=== PATIENT | female | born 1945 | race Caucasian/White ===

== ENCOUNTER 2018-12-22 09:51 | Observation (INO) | payer MEDICARE, BC ==
[2018-12-22 10:27] LABS: #Basophils 0.1 thou/uL (0.0-0.2); #Eosinphils 0.4 thou/uL (0.0-0.7); #Lymphocytes 1.5 thou/uL (1.20-3.40); #Monocytes 0.7 thou/uL (0.11-0.59); #Neutrophils 6.4 thou/uL (1.40-6.50); %Basophils 0.8 % (0.0-1.0); %Lymphocytes 16.7 % (21.0-51.0); %Monocytes 8.1 % (0.0-10.0); %Neutrophils 70.4 % (42.0-75.0); Hemoglobin 12.8 g/dL (12.0-16.0); Mean Corpuscular HGB CONC 34.5 g/dL (32.0-36.0); Mean Corpuscular Hemoglobin 33.8 pg (27.0-31.0); Mean Platelet Volume 10.2 fL (7.4-10.4); Platelet Count 197 thou/uL (130-400); RBC Distribution Width 12.6 % (11.5-14.5); Red Blood Cell (RBC) Count 3.81 mill/uL (4.20-5.40); White Blood Cell (WBC) Count 9.1 thou/uL (4.8-10.8)
--- NOTE | 2018-12-22 10:42 | RAD ---
EXAM: Portable chest PROVIDED CLINICAL HISTORY: Chest pain COMPARISON: 11/28/2010 FINDINGS: Cardiac and mediastinal silhouette is within normal limits. No focal consolidation, pleural fluid or pneumothorax evident. Evaluation of the left lung base is limited. Vascular calcification is seen. Em physematous changes are noted. IMPRESSION: No evidence for an acute cardiopulmonary process.
[2018-12-22 11:01] LABS: Albumin 3.9 g/dL (3.4-4.8)
[2018-12-22 11:02] LABS: Chloride 105 mmol/L (98-107); Potassium 4.4 mmol/L (3.5-5.1); Sodium 139 mmol/L (136-145)
[2018-12-22 11:03] LABS: Calcium 9.1 mg/dL (7.8-10.44)
[2018-12-22 11:04] LABS: Globulin 2.5 g/dL (2.4-3.5); Glucose 85 mg/dL (83-110); Protein, Total 6.4 g/dL (6.0-8.3)
[2018-12-22 11:05] LABS: Anion Gap 15 mmol/L (10-20); Bilirubin, Total 0.8 mg/dL (0.2-1.2); Carbon Dioxide 23 mmol/L (23-31)
[2018-12-22 11:06] LABS: Alkaline Phosphatase 72 U/L (40-150)
[2018-12-22 11:07] LABS: Calc. Creatinine Clearance 0 mL/min (70-130); Estimated GFR-MDRD 55
[2018-12-22 11:08] LABS: BUN (Urea Nitrogen) 18 mg/dL (9.8-20.1)
[2018-12-22 11:09] LABS: AST (SGOT) 13 U/L (5-34)
[2018-12-22 11:10] LABS: ALT (SGPT) 12 U/L (8-55); CK (CPK) 42 U/L (29-168); Lipase 10 U/L (8-78)
[2018-12-22] MEDS ORDERED: Aspirin Chewable 81 MG TAB ONE (12:37)
[2018-12-22 13:56] LABS: Troponin I Less than 0.010 ng/mL (< 0.028)
[2018-12-22] MEDS ORDERED: Ibuprofen 200 MG TAB PO ONE (15:53)
[2018-12-22] MEDS ORDERED: Acetaminophen 325 MG TAB PO PRN (15:54)
[2018-12-22 16:41] LABS: Troponin I 0.016 ng/mL (< 0.028)
[2018-12-22] MEDS ORDERED: Acetaminophen 325 MG TAB ONE (18:09)
--- NOTE | 2018-12-22 20:06 | SS ---
DATE OF ADMISSION: 12/22/2018 DATE OF DISCHARGE: 12/22/2018 PRIMARY CARE PHYSICIAN: Dr. Tito Hassan. CODE STATUS: Full code status. CONSULTING PHYSICIANS: None. However, Dr. Andersen, her clerical aide teacher, said going briefly to see her. BRIEF HISTORY AND HOSPITAL COURSE: Ms. Castanon is a very pleasant 73-year-old woman, presenting to the ER today after having persistent pain in the right shoulder for the last 4 days. According to her , this all began after she was helping him in the garage with lifting sheets of plywood and heavy equipment. She began to experience discomfort in her right shoulder as well as her right anterior chest and discomfort in the posterior right scapular region. The patient has noted limited mobility of her arm with inability to abduct or externally rotate. She has had difficulty sleeping due to the discomfort. She has also noted difficulty with taking a deep breath due to discomfort in the right scapular region. She has not tried taking anything in particular for the pain, but does regularly take Tylenol for arthritis. The patient denies having any associated diaphoresis. No sternal chest pain. No nausea or vomiting. Has not had any fevers, chills, or sweats. No cough or hemoptysis. She does, however, report feeling a bit panicked about the pain and had an episode of hyperventilating according to her . This brought on tingling sensation in her fingers and toes, which has since resolved. She does still continue to feel an aching in her right arm and occasional tingling in her fingers. The patient was seen in the ER and underwent laboratory studies including a troponin due to concern for ACS. Troponins have been negative x3. She underwent an ECG given her cardiac history, which showed no abnormal changes. She had a chest x- ray done demonstrating no evidence for an acute cardiopulmonary process. No focal consolidation, pleural fluid, or pneumothorax evident. She was treated with aspirin 324 mg and referred for a chest pain rule out. On examination, it is evident that the patient actually has a musculoskeletal discomfort given the recent strenuous activity and injury 4 days ago that has been persisting. Given the normal EKG and troponin, she is unlikely to be experiencing any ACS or underlying cardiac problem. She was briefly seen by Dr. Andersen, who was in agreement. She has been evaluated by Dr. Salazar, who was also in agreement and the patient is medically cleared for discharge home. PAST MEDICAL HISTORY: 1. Previous TIA. 2. Right orbital fractures. 3. Hypertension. 4. Coronary artery disease. 5. Peripheral vascular disease. 6. Gout. 7. Hypothyroidism. 8. History of colitis. 9. History of dyslipidemia. PAST SURGICAL HISTORY: 1. Cholecystectomy. 2. Surgery to her middle finger. 3. Endarterectomy in 2008 after 95% stenosis was found on the left internal carotid artery. SOCIAL HISTORY: The patient denies any alcohol use, tobacco use, or illicit drug use. She lives with her and is fully independent at baseline. FAMILY HISTORY: Her father had history of coronary artery bypass grafting at age 76. Her sister from COPD and lung cancer. There is a history of lung cancer on her mother's side. ALLERGIES: THE PATIENT REPORTS ALLERGY TO CODEINE AND HYDROCODONE. CURRENT MEDICATIONS: 1. Diovan. 2. CoQ10 of 200 mg p.o. daily. 3. Ranexa 1000 mg p.o. daily. 4. Livalo 2 mg p.o. every evening. 5. Omeprazole magnesium 40 mg p.o. twice daily. 6. Levothyroxine 112 mcg p.o. at bedtime. 7. Clopidogrel 75 mg p.o. daily. 8. Carvedilol 12.5 mg p.o. daily. 9. Allopurinol 300 mg p.o. daily. PHYSICAL EXAMINATION: GENERAL: The patient appears well developed, well nourished, in no acute distress. She does appear to be in mild discomfort whenever she tries to move due to discomfort, particularly in the right posterior shoulder. VITAL SIGNS: Temperature 97.8, pulse 50, respirations 18, blood pressure 115/61 , and O2 saturation 98% on room air. HEENT: Normocephalic and atraumatic. Pupils are equal, round, and reactive to light. Sclerae without icterus. Oropharynx is clear. NECK: Supple without lymphadenopathy. No tenderness to palpation or swelling. CARDIAC: Regular rate and rhythm. LUNGS: Clear to auscultation bilaterally. However, difficulty with deep inspiration due to subsequent pain on the right shoulder/scapular region. ABDOMEN: Soft, nontender, and nondistended. Normoactive bowel sounds present. EXTREMITIES: No lower limb edema. No calf pain or tenderness. Power 5/5 in both upper and lower extremities. There is reduced range of motion into the right shoulder with inability to abduct or externally rotate her shoulder discomfort during both movements against resistance. Normal sales representative trainee strength bilaterally with normal sensation in the bilateral upper extremities. Pulses equal and strong bilaterally as well. Normal sensation in lower extremities with pedal pulses present and equal bilaterally as well. NEUROLOGIC: Alert and oriented x3. No focal deficits. SKIN: Without rash or jaundice. LABORATORY DATA: White blood count 9.1, hemoglobin 12.8, hematocrit 37.3, platelets 197. D-dimer less than 0.27. Sodium 139, potassium 4.4, carbon dioxide 23, anion gap 15, BUN 18, creatinine 0.99, GFR 55. Glucose 85, calcium 9.1. LFTs unremarkable. CK 42 and troponin negative x3. BNP 223.2. Lipase 10. IMAGING DATA: As mentioned above in HPI. Chest x-ray is unremarkable. CONDITION: Stable at discharge. ACTIVITY: As tolerated. Right shoulder to be placed in a sling for comfort until further workup. May benefit from PT/OT. DIET: Heart healthy. DISCHARGE MEDICATIONS: The patient advised to resume her regular home medications. We have provided a prescription for Tylenol Extra Strength to take 1 to 2 tablets p.o. as needed every 6 hours for pain. Prescription also given for Flexeril 5 mg p.o. at bedtime. FOLLOWUP: The patient advised to follow up with her primary care physician within 1 week for further management of her shoulder pain and further workup such as MRI and PT/OT. The patient was briefly seen by Dr. Andersen in the ER, who agreed pain is unlikely to be cardiac in nature, and she will continue to follow with him as scheduled. DISPOSITION: The patient's case was discussed with Dr. Salazar, also evaluated the patient and is in agreement with plans for discharge home today on December 22, 2018. Job ID: [id number] [facility]
[2018-12-22] MEDS ORDERED: Famotidine 20 MG TAB PO SCH (21:00)
== END 2018-12-22 18:26 | disposition home or self-care (01) ==
LOC: ERS 09:51 → ERHOLD 12:26
PROVIDERS: ADMIT Internal Medicine; ATTEND Internal Medicine
DX: M25.511 Pain in right shoulder (principal); R07.89 Other chest pain; I10 Essential (primary) hypertension; I25.10 Atherosclerotic heart disease of native coronary artery without angina pectoris; I73.9 Peripheral vascular disease, unspecified; M10.9 Gout, unspecified; E03.9 Hypothyroidism, unspecified; E78.5 Hyperlipidemia, unspecified; Z86.73 Personal history of transient ischemic attack (TIA), and cerebral infarction without residual deficits; Z79.02 Long term (current) use of antithrombotics/antiplatelets; Z79.899 Other long term (current) drug therapy; Z88.5 Allergy status to narcotic agent; Z98.890 Other specified postprocedural states
CPT/HCPCS: 71045; 80053; 82550; 83690; 83880; 84484 ×2; 85025; 85379; 93005; 99285; G0378; G0463; 36415; 99213

== ENCOUNTER 2023-04-30 07:59 | Observation (INO) | payer MEDICARE ==
[2023-04-30 08:53] LABS: #Basophils 0.1 thou/uL (0.0-0.2); #Eosinphils 0.5 thou/uL (0.0-0.7); #Monocytes 0.9 thou/uL (0.11-0.59); #Neutrophils 7.2 thou/uL (1.40-6.50); %Basophils 0.9 % (0.0-1.0); %Eosinophils 5.1 % (0.0-10.0); %Lymphocytes 14.4 % (21.0-51.0); %Monocytes 9.1 % (0.0-10.0); %Neutrophils 69.9 % (42.0-75.0); Hematocrit 38.2 % (36.0-47.0); Hemoglobin 12.4 g/dL (12.0-16.0); Mean Corpuscular HGB CONC 32.5 g/dL (32.0-36.0); Mean Corpuscular Hemoglobin 32.5 pg (27.0-31.0); Mean Platelet Volume 11.8 fL (7.4-10.4); Platelet Count 224 10x3/uL (130-400); RBC Distribution Width 13.8 % (11.5-14.5); Red Blood Cell (RBC) Count 3.82 mill/uL (4.20-5.40); White Blood Cell (WBC) Count 10.2 10x3/uL (4.8-10.8)
[2023-04-30 09:17] LABS: ALT (SGPT) 9 U/L (8-55); AST (SGOT) 14 U/L (5-34); Alkaline Phosphatase 73 U/L (40-110); Anion Gap 17 mmol/L (10-20); BUN (Urea Nitrogen) 24 mg/dL (9.8-20.1); Bilirubin, Total 0.8 mg/dL (0.2-1.2); Calc. Creatinine Clearance 0 mL/min (70-130); Calcium 9.9 mg/dL (7.8-10.44); Carbon Dioxide 30 mmol/L (23-31); Chloride 98 mmol/L (98-107); Estimated GFR 37; Globulin 2.7 g/dL (2.4-3.5); Glucose 107 mg/dL (83-110); Potassium 4.6 mmol/L (3.5-5.1); Protein, Total 6.7 g/dL (5.8-8.1); Sodium 140 mmol/L (136-145)
[2023-04-30] MEDS ORDERED: Furosemide 40 MG/4 ML VIAL ONE (09:17)
[2023-04-30 09:19] LABS: Troponin I 0.011 ng/mL (< 0.028)
[2023-04-30 10:03] LABS: Bacteria/HPF None Seen HPF (None Seen); Bilirubin Negative (Negative); Blood, Urine Negative (Negative); CAUTI Indications for Culture Dysuria,urgency,freq; Clarity Clear (Clear); Glucose, Urine (Dipstick) Normal (Negative); Ketone, Urine Negative (Negative); Leukocyte 75 Leu/uL (Negative); Nitrite Negative (Negative); Protein, Urine (Dipstick) Negative (Neg-Trace); RBC/HPF 0-3 HPF (0-3); Specific Gravity, Urine 1.013 (1.002-1.036); Urobilinogen Normal mg/dL (Less than 2); WBC/HPF 0-3 HPF (0-3)
[2023-04-30 10:04] LABS: Urine Culture Reflex No No
[2023-04-30] MEDS ORDERED: Iopamidol-370 76% 500 ML MDV (1 ML CHARGE) ONE (10:29)
[2023-04-30] MEDS ORDERED: ALBUMIN 5% 25 GM/250 ML BAG IVPB SCH (12:15)
[2023-04-30] MEDS ORDERED: Ondansetron ODT 4 MG TAB PO PRN (13:43)
[2023-04-30] MEDS ORDERED: Ondansetron PF 4 MG/2 ML Vial IVP PRN (13:43)
[2023-04-30 14:22] LABS: Troponin I Less than 0.010 ng/mL (< 0.028)
[2023-04-30] MEDS: Sodium Chloride 0.9% 1,000 ML IV SCH (15:36)
[2023-04-30 16:06] VITALS: BMI 25.0
[2023-04-30] MEDS ORDERED: Pantoprazole 40 MG VIAL IVP SCH (16:15)
[2023-04-30 17:16] LABS: Troponin I Less than 0.010 ng/mL (< 0.028)
[2023-04-30] MEDS: Carvedilol 6.25 MG TAB PO SCH (20:06)
[2023-05-01 04:50] LABS: #Basophils 0.1 thou/uL (0.0-0.2); #Eosinphils 0.4 thou/uL (0.0-0.7); #Neutrophils 5.7 thou/uL (1.40-6.50); %Basophils 0.9 % (0.0-1.0); %Eosinophils 4.3 % (0.0-10.0); %Lymphocytes 22.3 % (21.0-51.0); %Monocytes 10.8 % (0.0-10.0); %Neutrophils 61.3 % (42.0-75.0); Hematocrit 35.2 % (36.0-47.0); Hemoglobin 11.5 g/dL (12.0-16.0); Mean Corpuscular HGB CONC 32.7 g/dL (32.0-36.0); Mean Corpuscular Hemoglobin 32.8 pg (27.0-31.0); Mean Corpuscular Volume 100.3 fl (78.0-98.0); Mean Platelet Volume 11.6 fL (7.4-10.4); Platelet Count 187 10x3/uL (130-400); RBC Distribution Width 13.9 % (11.5-14.5); Red Blood Cell (RBC) Count 3.51 mill/uL (4.20-5.40); White Blood Cell (WBC) Count 9.3 10x3/uL (4.8-10.8)
[2023-05-01] MEDS: Sodium Chloride 0.9% 1,000 ML IV SCH (05:11)
[2023-05-01 05:12] LABS: Anion Gap 13 mmol/L (10-20); BUN (Urea Nitrogen) 22 mg/dL (9.8-20.1); Calc. Creatinine Clearance 42 mL/min (70-130); Calcium 9.2 mg/dL (7.8-10.44); Carbon Dioxide 27 mmol/L (23-31); Chloride 103 mmol/L (98-107); Estimated GFR 42; Glucose 89 mg/dL (83-110); Potassium 3.8 mmol/L (3.5-5.1); Sodium 139 mmol/L (136-145)
[2023-05-01] MEDS ORDERED: Levothyroxine Sodium 75 MCG TAB PO SCH (06:00)
[2023-05-01] MEDS ORDERED: Levothyroxine Sodium 112 MCG TAB PO SCH (06:00)
[2023-05-01] MEDS: Carvedilol 6.25 MG TAB PO SCH (08:37)
[2023-05-01] MEDS ORDERED: Allopurinol 300 MG TAB PO SCH (09:00)
[2023-05-01] MEDS ORDERED: Aspirin 81 mg Enteric Coated Tablet PO SCH (09:00)
[2023-05-01 12:29] VITALS: BP 113/58; TEMP 97.4
[2023-05-02] MEDS ORDERED: Polyethylene Glycol 3350 17 GM Packet PO SCH (09:00)
== END 2023-05-01 16:05 | disposition home or self-care (01) ==
LOC: ERS 07:59 → 2SE 13:09
PROVIDERS: ADMIT Internal Medicine; ATTEND Family Medicine
DX: R14.0 Abdominal distension (gaseous) (principal); N17.9 Acute kidney failure, unspecified; N18.30 Chronic kidney disease, stage 3 unspecified; I50.9 Heart failure, unspecified; I13.0 Hypertensive heart and chronic kidney disease with heart failure and stage 1 through stage 4 chronic kidney disease, or unspecified chronic kidney disease; E03.9 Hypothyroidism, unspecified; I25.10 Atherosclerotic heart disease of native coronary artery without angina pectoris; E78.5 Hyperlipidemia, unspecified; M10.9 Gout, unspecified; Z87.59 Personal history of other complications of pregnancy, childbirth and the puerperium; Z88.5 Allergy status to narcotic agent; Z90.49 Acquired absence of other specified parts of digestive tract; Z90.89 Acquired absence of other organs; Z90.710 Acquired absence of both cervix and uterus; Z87.891 Personal history of nicotine dependence; Z79.890 Hormone replacement therapy; Z79.82 Long term (current) use of aspirin; Z79.899 Other long term (current) drug therapy
CPT/HCPCS: 71045; 74177; 80048; 80053; 81001; 83880; 84484 ×2; 85025 ×2; 93005; 93306; P9045; 36415; 96365; 96375; C9113; G0378; J1940; J7050; Q9967

== ENCOUNTER 2023-05-04 09:22 | Emergency (ER) | payer MEDICARE ==
[2023-05-04 10:31] LABS: Bacteria/HPF None Seen HPF (None Seen); Bilirubin Negative (Negative); Blood, Urine Negative (Negative); CAUTI Indications for Culture Pelvic or flank pain; Clarity Clear (Clear); Glucose, Urine (Dipstick) Normal (Negative); Ketone, Urine Negative (Negative); Leukocyte Negative Leu/uL (Negative); Nitrite Negative (Negative); Protein, Urine (Dipstick) Negative (Neg-Trace); RBC/HPF 0-3 HPF (0-3); Specific Gravity, Urine 1.009 (1.002-1.036); Squamous Epithelial 0-3 HPF (0-3); Urobilinogen Normal mg/dL (Less than 2); WBC/HPF 0-3 HPF (0-3); pH, Urine 6.5 (5.0-9.0)
[2023-05-04 10:32] LABS: #Basophils 0.1 thou/uL (0.0-0.2); #Eosinphils 0.4 thou/uL (0.0-0.7); #Monocytes 0.7 thou/uL (0.11-0.59); #Neutrophils 6.2 thou/uL (1.40-6.50); %Eosinophils 4.2 % (0.0-10.0); %Lymphocytes 14.8 % (21.0-51.0); %Monocytes 7.5 % (0.0-10.0); %Neutrophils 72.2 % (42.0-75.0); Hematocrit 36.7 % (36.0-47.0); Hemoglobin 12.5 g/dL (12.0-16.0); Mean Corpuscular HGB CONC 34.1 g/dL (32.0-36.0); Mean Corpuscular Hemoglobin 32.9 pg (27.0-31.0); Mean Corpuscular Volume 96.6 fl (78.0-98.0); Mean Platelet Volume 11.4 fL (7.4-10.4); Platelet Count 212 10x3/uL (130-400); RBC Distribution Width 13.4 % (11.5-14.5); White Blood Cell (WBC) Count 8.6 10x3/uL (4.8-10.8)
[2023-05-04 10:35] LABS: Urine Culture Reflex No No
[2023-05-04 10:58] LABS: ALT (SGPT) 10 U/L (8-55); AST (SGOT) 15 U/L (5-34); Albumin 4.2 g/dL (3.4-4.8); Alkaline Phosphatase 75 U/L (40-110); Anion Gap 14 mmol/L (10-20); BUN (Urea Nitrogen) 21 mg/dL (9.8-20.1); Bilirubin, Total 0.7 mg/dL (0.2-1.2); Calc. Creatinine Clearance 0 mL/min (70-130); Calcium 9.8 mg/dL (7.8-10.44); Carbon Dioxide 30 mmol/L (23-31); Chloride 100 mmol/L (98-107); Estimated GFR 41; Globulin 2.4 g/dL (2.4-3.5); Glucose 109 mg/dL (83-110); Lipase 13 U/L (8-78); Magnesium 1.8 mg/dL (1.6-2.6); Potassium 4.2 mmol/L (3.5-5.1); Protein, Total 6.6 g/dL (5.8-8.1); Sodium 140 mmol/L (136-145)
[2023-05-04 10:59] LABS: Troponin I Less than 0.010 ng/mL (< 0.028)
[2023-05-04] MEDS ORDERED: Iopamidol-370 76% 500 ML MDV (1 ML CHARGE) ONE (11:07)
== END 2023-05-04 12:44 | disposition home or self-care (01) ==
LOC: ERS 09:22
DX: R10.84 Generalized abdominal pain (principal); R00.1 Bradycardia, unspecified; I95.9 Hypotension, unspecified; I10 Essential (primary) hypertension; E78.5 Hyperlipidemia, unspecified; Z87.891 Personal history of nicotine dependence; Z79.899 Other long term (current) drug therapy; Z79.82 Long term (current) use of aspirin
CPT/HCPCS: 36415; 71045; 74177; 76705; 80053; 81001; 83605; 83690; 83735; 84484; 85025; 93005; 94760; 96360; Q9967